=== PATIENT | male | born 1990 | race Caucasian/White ===

== ENCOUNTER 2017-07-23 21:01 | Emergency (ER) | payer SELFPAY ==
[2017-07-23 21:02] VITALS: BP 136/78; PULSE 71; RESP 16; TEMP 36.6; O2SAT 97; BMI 22.4
[2017-07-23] MEDS: Diphth,Pertuss(Acell),Tet Vac 0.5 ML Vial IM (21:22)
--- NOTE | 2017-07-23 21:27 | ED.DCSUM_ITS ---
- ER Visit Summary Date of Service: 07/23/17 Chief Complaint: Laceration History of Present Illness: The patient is a 27 M who cut her right AC with a hand box coverer approximately 11 hours prior to arrival. He notes bleeding is controlled. His tetanus is not up-to-date. Physical Examination: There is a 1.5 cm vertically orientated linear laceration over the medial aspect of the right AC fossa. There is no active bleeding. Clot is in place. No obvious signs of infection Emergency Department Course and Treatment: I discussed the risk of infection with the patient. Wound was locally anesthetized using 1% lidocaine. It was washed with Shur-Clens and explored. Old clot was removed fresh bleeding occurred. The wound was closed using a total of #3 4-0 simple interrupted Ethilon sutures. Tetanus is updated with Adacel. Stitches will need to be removed in 10-14 days return for worsening concerns or signs of infection. Impression: 1. 1.5 cm laceration of the right forearm with repair 2. Tetanus update This note was generated with [employer] dictation software. It may contain incorrect words, spelling, and punctuation that were not noted in review of the chart prior to signing ED Disposition - Plan for ED Patient: Disposition: Home or Assisted Living Chief Complaint: Laceration Instructions: ED Laceration Ext Sutr Stap Tape Referrals: Kristina Toscano MD [STAFF PHYSICIAN] - 10-14 Days suture removal
[2017-07-23 21:39] VITALS: BP 126/78; PULSE 81; RESP 16; O2SAT 100
== END 2017-07-23 21:40 | disposition home or self-care (01) ==
PROVIDERS: Emergency Provider Emergency Medicine
DX: S51.811A Laceration without foreign body of right forearm, initial encounter (principal); W26.8XXA Contact with other sharp object(s), not elsewhere classified, initial encounter; Y93.9 Activity, unspecified; Y92.9 Unspecified place or not applicable; Z23 Encounter for immunization
CPT/HCPCS: 12001; 90471; 90715; 99283

== ENCOUNTER 2017-11-21 13:09 | Observation (INO) | payer SELFPAY ==
[2017-11-21] VITALS (10 sets, daily range): BP systolic 113–132; BP diastolic 59–80; PULSE 74–119; RESP 14–18; TEMP 36.4–37.1; O2SAT 0–99; BMI 22.2
--- NOTE | 2017-11-21 13:34 | CT_ITS ---
STUDY: CT ABDOMEN AND PELVIS WITH CONTRAST REASON FOR EXAM: Male, 27 years old. Right testicular pain RADIATION DOSAGE (If Supplied By Facility): CTDIvol = ( 9.99 ) mGy, DLP = ( 623.09 ) mGycm TECHNIQUE: Transaxial images were obtained from the dome of the diaphragm to the symphysis pubis without oral contrast. 100CC ml of Isovue 300 contrast was administered. Sagittal and coronal images were reconstructed. Individualized dose optimization techniques were used for this CT. COMPARISON: None. FINDINGS: Left basilar peripheral nonspecific nodules up to 4 mm. The visualized portions of the heart are within normal limits. Normal liver. Normal gallbladder and extrahepatic biliary system. Normal spleen. Normal pancreas. Normal bilateral adrenal glands. 1.5 cm cyst in the right kidney. Normal left kidney. Normal visualized stomach. Normal small intestine. Normal colon. The appendix is thickened with inflammation and appendicolith. Acute appendicitis is suspected in the proper clinical settings. Normal abdominal aorta. Normal inferior vena cava. Normal retroperitoneum. Wall thickening of the urinary bladder with perivesical fluid/edema. Moderate pelvic fluid. Normal abdominal wall. Normal osseous structures. CT/Abdomen/Pelvis W IV Cont ONLY IMPRESSION: The appendix is thickened with inflammation and appendicolith. Acute appendicitis is suspected in the proper clinical settings. Wall thickening of the urinary bladder with perivesical fluid/edema. Moderate pelvic fluid. Electronically Signed: Clarence Caruso DO at 15:40 EDT Tel [phone], Service support ,
[2017-11-21] MEDS: 0.9% Normal Saline 1,000 ML 1000 ML IV (13:55)
[2017-11-21 14:00] LABS: Absolute Lymphocyte Count 1.38 X10^3/ul (0.83-4.51); Absolute Neutrophil Count 8.9 X10^3/uL (2.0-7.7); Basophil# 0.03 X10^3/uL; Basophil% 0.3 % (0-1); Eosinophil# 0.04 X10^3/uL; Eosinophils% 0.4 % (0-5); Hematocrit 44.7 % (40-54); Hemoglobin 15.2 g/dl (13.0-16.5); Lymphocyte # 1.38 X10^3/ul (4.0); Lymphocyte % 12.1 % (19-41); Mean Corpuscular Hgb 29.1 pg (27.0-32.0); Mean Corpuscular Volume 85.6 fL (80-94); Mean Platelet Vol. 10.8 fl (6.2-12.0); Monocyte# 1.03 X10^3/uL; Neutrophil # 8.89 X10^3/uL (2.7-7.7); Neutrophil % 77.9 % (47-70); POSITIVE COUNT NO; POSITIVE DIFFERENTIAL NO; POSITIVE MORPHOLOGY NO; Platelet Count 214 K/mm3 (150-450); RBC Distribution Width CV 13.6 % (11.6-14.6); RBC Distribution Width SD 42.5 fl (35.1-43.9); Red Blood Count 5.22 M/mm3 (4.6-6.2); White Blood Count 11.4 K/mm3 (4.4-11.0)
[2017-11-21 14:13] LABS: Mucous, Urine 0 SEEN /hpf (<or=2+); Red Blood Cells-Urine 0 SEEN /hpf (0-5); Squamous Epithelial Cells - UA 0 SEEN /hpf (0-5); White Blood Cells 0 SEEN /hpf (0-5)
[2017-11-21 14:14] LABS: AST(SGOT) 11 U/L (15-37); Alanine Aminotransfer ALT/SGPT 13 U/L (16-61); Albumin, Serum 3.8 g/dL (3.2-5.0); Alkaline Phosphatase 70 U/L (45-117); Anion Gap 5 (5-15); BUN 11 mg/dL (7-18); BUN/Creat Ratio 11.9 RATIO (10-20); Calcium,Total 8.6 mg/dL (8.5-10.1); Chloride 104 mmol/L (98-107); Creatinine, Serum 0.93 mg/dL (0.70-1.30); EST Glomerular Filtration Rate 105 mL/min (>60); Est Glom Filt Rate - Afr Amer 127 mL/min (>60); Estimated Creatinine Clearance 127.78 ml/min; Glucose 97 mg/dL (74-106); Lipase 50 U/L (73-393); Protein, Total 7.8 g/dL (6.4-8.2); Sodium Level 137 mmol/L (136-145)
[2017-11-21 14:17] LABS: Color, Urine Yellow (Yellow); Glucose, Dipstick Normal (Normal); Ketone-Dipstick Negative (Negative); Leukocyte Esterase-Dipstick Negative /ul (Negative); Nitrite-Dipstick Negative (Negative); Occult Blood-Urine Negative /ul (Negative); Protein-Dipstick Negative (Negative); Urine Bilirubin Dipstick Negative (Negative); Urine Clarity Clear (Clear); Urine Urobilinogen Normal (Normal)
[2017-11-21 14:24] LABS: Amorphous Sediment R; Bacteria RARE /hpf (None Seen)
--- NOTE | 2017-11-21 15:35 | APP_PTH ---
PATIENT: GRISELDA TRONCOSO LOC: MS3 U#:[id number] AGE/SX: 27/M ROOM: [facility] RE11/21/[address]: Dr. Sahra Marshall MD : 1990 BED: 1 DIS: 11/23/2017 SPEC #: [id number] RECD: 11/22/17 09:34 STATUS: ERIBERTO REJase #: [id number] KAITLIN: 11/21/17 15:[address]: Sahra Marshall DEPT: SURGICAL PATHOLOGY RECD BY: Gama Dias ENTERED: 11/22/17 10:22 SP TYPE: APPENDIX OTHR DR: Dr. Reji Gaona MD No Primary Care Phys Tissues: Appendix, NOS Procedures: Surgery Specimen Level III HEADER OPERATION: Laparoscopic appendectomy PRE-OP DIAGNOSIS: Acute appendicitis TISSUE SUBMITTED: Appendix MICROSCOPIC DIAGNOSIS Appendix: Acute appendicitis and periappendicitis. SJ:siva 11/23/17 MICROSCOPIC DESCRIPTION Slides are reviewed. GROSS DESCRIPTION Received is one container labeled with the patient's name and designated appendix. The specimen consists of a C-shaped appendix measuring 8 cm in length and up to 0.8 cm in average diameter. The attached periappendiceal adipose tissue measures up to 2.5 cm in width. The appendix is disrupted 2 cm away from the tip and may represent site of perforation. The lumen does not contain a fecalith. Field Radio Operator sections are submitted in one cassette. / SJ:siva 11/22/17 TC:2 [facility]: [id number]
--- NOTE | 2017-11-21 15:50 | NURSING ---
DR OLSON PAGEEwelina
--- NOTE | 2017-11-21 15:53 | ED.VISSUMM ---
- ER Visit Summary Date of Service: 11/21/17 Chief Complaint: Right groin pain History of Present Illness: The patient is a 27 M and abdominal pain for 5 days. The pain started in his right lower abdomen and has migrated to his right inguinal region and right testicle today. Associated with a headache and not feeling well. No other GI symptoms. No symptoms. No history of this in the past. No surgical history. Physical Examination: Afebrile and vital signs unremarkable. Abdomen is tender in the right lower quadrant. exam was nontender with no masses and a normal testicular lie. Test Results: White count 11.4. CMP, lipase, and urinalysis unremarkable. CT showed appendix thickening with an appendicolith. He also has bladder wall thickening. Emergency Department Course and Treatment: Patient initially declined pain medication. On reevaluation, he had increasing pain and was treated with morphine. I suspect that with his history and demographics, this is likely appendicitis. There is nothing to suggest pathology. Patient was treated with Zosyn and Dr. Marshall will evaluate. Treatment Plan: As above Disposition: Admission Impression: 1. Acute appendicitis This note was generated with [employer] dictation software. It may contain incorrect words, spelling, and punctuation that were not noted in review of the chart prior to signing ED Disposition - Plan for ED Patient: Chief Complaint: Male Pain/Injury Referrals: Care Physician,No Primary [Primary Care Provider] -
--- NOTE | 2017-11-21 15:57 | ED.DCSUM_ITS ---
- ER Visit Summary Date of Service: 11/21/17 Chief Complaint: Right groin pain History of Present Illness: The patient is a 27 M and abdominal pain for 5 days. The pain started in his right lower abdomen and has migrated to his right inguinal region and right testicle today. Associated with a headache and not feeling well. No other GI symptoms. No symptoms. No history of this in the past. No surgical history. Physical Examination: Afebrile and vital signs unremarkable. Abdomen is tender in the right lower quadrant. exam was nontender with no masses and a normal testicular lie. Test Results: White count 11.4. CMP, lipase, and urinalysis unremarkable. CT showed appendix thickening with an appendicolith. He also has bladder wall thickening. Emergency Department Course and Treatment: Patient initially declined pain medication. On reevaluation, he had increasing pain and was treated with morphine. I suspect that with his history and demographics, this is likely appendicitis. There is nothing to suggest pathology. Patient was treated with Zosyn and Dr. Marshall will evaluate. Treatment Plan: As above Disposition: Admission Impression: 1. Acute appendicitis This note was generated with [employer] dictation software. It may contain incorrect words, spelling, and punctuation that were not noted in review of the chart p rior to signing ED Disposition - Plan for ED Patient: Chief Complaint: Male Pain/Injury Referrals: Care Physician,No Primary [Primary Care Provider] -
[2017-11-21] MEDS: Morphine 4 MG/ML Syringe IV (16:12)
--- NOTE | 2017-11-21 16:40 | PCM.HP.STD ---
History of Present Illness Date of Admission: 11/21/17 Chief Complaint: Acute appendicitis The patient is a 27 year old M resents to the ER due to right lower quadrant pain started yesterday about 4 PM. Patient rates the pain a 5/10, positive nausea, no vomiting, felt warm today but no recorded fever. Patient states he did have a bowel moment today which was normal. Patient CT abdomen pelvis which was consistent with thickened appendix with appendicolith, his white blood cell count was 11.4. Patient did state for about 5 days last week he did not feel well however on Wednesday he did start feeling much better and then this pain began on Wednesday. Past Medical History Allergies No Known Allergies Allergy (Verified 11/21/17 13:29) Home Medications: Ambulatory Orders Medication Instructions Recorded NK 07/23/17 Surgical History: no surgical history Psychiatric History: No pertinent psych hx Lives: Spouse/ Significant Other Smoking Status: Never smoker - *Family History Maternal History Items: No pertinent history Review of Systems Constitutional: Reports: Anorexia, Fever Eyes: Denies: Blurred vision HEENT: Denies: Difficulty Swallowing Cardiovascular: Denies: Chest Pain Gastrointestinal: Reports: Abdominal Pain VTE Information - Inpt Only VTE Present on Admission: Yes VTE Mechan Device Prophylaxis: SCD's VTE Pharm Prophylaxis ordered?: No Reason prophylaxis not ordered:: Treatment Not Indicated - Physical Exam General: Alert, Oriented x3, Cooperative, No apparent distress HEENT: Atraumatic Lungs: Normal air movement Cardiovascular: Regular rate, Regular Rhythm Abdomen: Soft, Non-Distended, Tender - Right lower quadrant greater than left lower quadrant, no guarding rebound Vital Signs Temp Pulse Resp BP Pulse Ox 98.7 F 87 16 119/80 99 11/21/17 16:13 11/21/17 16:13 11/21/17 16:13 11/21/17 16:13 11/21/17 15:18 Oxygen Delivery Method Room Air Weight: 164 lb 0.383 oz Body Mass Index (BMI) 22.2 Laboratory Tests Past 24 Hrs 11/21/17 11/21/17 11/21/17 13:35 13:35 14:07 WBC 11.4 H RBC 5.22 Hgb 15.2 Hct 44.7 MCV 85.6 MCH 29.1 MCHC 34.0 RDW 13.6 RDW Differential 42.5 Plt Count 214 MPV 10.8 Immature Gran % (Auto) 0.300 Neut % (Auto) 77.9 H Lymph % (Auto) 12.1 L [place] % (Auto) 9.0 Eos % (Auto) 0.4 Baso % (Auto) 0.3 Absolute Neuts (auto) 8.9 H Absolute Lymphs (auto) 1.38 Total Counted Not Reportable Sodium 137 Potassium 4.0 Chloride 104 Carbon Dioxide 28.0 Anion Gap 5 BUN 11 Creatinine 0.93 Estim Creat Clear Calc 127.78 Est GFR (MDRD) Af Amer 127 Est GFR (MDRD) Non-Af 105 BUN/Creatinine Ratio 11.9 Glucose 97 Calcium 8.6 Total Bilirubin 0.60 AST 11 L ALT 13 L Alkaline Phosphatase 70 Total Protein 7.8 Albumin 3.8 Globulin 4.0 Albumin/Globulin Ratio 1.0 Lipase 50 L Urine Color Yellow Urine Clarity Clear Urine pH 7.0 Ur Specific [place] 1.010 Urine Protein Negative Urine Glucose (UA) Normal Urine Ketones Negative Urine Occult Blood Negative Urine Nitrite Negative Urine Bilirubin Negative Urine Urobilinogen Normal Ur Leukocyte Esterase Negative Urine RBC 0 SEEN Urine WBC 0 SEEN Ur Squamous Epith Cells 0 SEEN Amorphous Sediment R Urine Bacteria RARE Urine Mucus 0 SEEN Assessment/Plan 27-year-old male with acute appendicitis 1. Discussed procedure laparoscopic appendectomy, possible open, possible bowel resection along with the risk but not limited to bleeding, infection/abscess, injury to another organ (small bowel, colon, etc.), adhesion, hernia at incision sites, and anesthesia. Patient and his had no further questions. Sahra Marshall M.D. Pager: [phone] [facility] [address] [place] [address], [address] [place] [address] Office: [phone]
--- NOTE | 2017-11-21 16:44 | HP.PCM_ITS ---
History of Present Illness Date of Admission: 11/21/17 Chief Complaint: Acute appendicitis The patient is a 27 year old M resents to the ER due to right lower quadrant pain started yesterday about 4 PM. Patient rates the pain a 5/10, positive nausea, no vomiting, felt warm today but no recorded fever. Patient states he did have a bowel moment today which was normal. Patient CT abdomen pelvis which was consistent with thickened appendix with appendicolith, his white blood cell count was 11.4. Patient did state for about 5 days last week he did not feel well however on Wednesday he did start feeling much better and then this pain began on Wednesday. Past Medical History Allergies No Known Allergies Allergy (Verified 11/21/17 13:29) Home Medications: Ambulatory Orders Medication Instructions Recorded NK 07/23/17 Surgical History: no surgical history Psychiatric History: No pertinent psych hx Lives: Spouse/ Significant Other Smoking Status: Never smoker - *Family History Maternal History Items: No pertinent history Review of Systems Constitutional: Reports: Anorexia, Fever Eyes: Denies: Blurred vision HEENT: Denies: Difficulty Swallowing Cardiovascular: Denies: Chest Pain Gastrointestinal: Reports: Abdominal Pain VTE Information - Inpt Only VTE Present on Admission: Yes VTE Mechan Device Prophylaxis: SCD's VTE Pharm Prophylaxis ordered?: No Reason prophylaxis not ordered:: Treatment Not Indicated - Physical Exam General: Alert, Oriented x3, Cooperative, No apparent distress HEENT: Atraumatic Lungs: Normal air movement Cardiovascular: Regular rate, Regular Rhythm Abdomen: Soft, Non-Distended, Tender - Right lower quadrant greater than left l ower quadrant, no guarding rebound Vital Signs Temp Pulse Resp BP Pulse Ox 98.7 F 87 16 119/80 99 11/21/17 16:13 11/21/17 16:13 11/21/17 16:13 11/21/17 16:13 11/21/17 15:18 Oxygen Delivery Method Room Air Weight: 164 lb 0.383 oz Body Mass Index (BMI) 22.2 Laboratory Tests Past 24 Hrs 11/21/17 11/21/17 11/21/17 13:35 13:35 14:07 WBC 11.4 H RBC 5.22 Hgb 15.2 Hct 44.7 MCV 85.6 MCH 29.1 MCHC 34.0 RDW 13.6 RDW Differential 42.5 Plt Count 214 MPV 10.8 Immature Gran % (Auto) 0.300 Neut % (Auto) 77.9 H Lymph % (Auto) 12.1 L [place] % (Auto) 9.0 Eos % (Auto) 0.4 Baso % (Auto) 0.3 Absolute Neuts (auto) 8.9 H Absolute Lymphs (auto) 1.38 Total Counted Not Reportable Sodium 137 Potassium 4.0 Chloride 104 Carbon Dioxide 28.0 Anion Gap 5 BUN 11 Creatinine 0.93 Estim Creat Clear Calc 127.78 Est GFR (MDRD) Af Amer 127 Est GFR (MDRD) Non-Af 105 BUN/Creatinine Ratio 11.9 Glucose 97 Calcium 8.6 Total Bilirubin 0.60 AST 11 L ALT 13 L Alkaline Phosphatase 70 Total Protein 7.8 Albumin 3.8 Globulin 4.0 Albumin/Globulin Ratio 1.0 Lipase 50 L Urine Color Yellow Urine Clarity Clear Urine pH 7.0 Ur Specific [place] 1.010 Urine Protein Negative Urine Glucose (UA) Normal Urine Ketones Negative Urine Occult Blood Negative Urine Nitrite Negative Urine Bilirubin Negative Urine Urobilinogen Normal Ur Leukocyte Esterase Negative Urine RBC 0 SEEN Urine WBC 0 SEEN Ur Squamous Epith Cells 0 SEEN Amorphous Sediment R Urine Bacteria RARE Urine Mucus 0 SEEN Assessment/Plan 27-year-old male with acute appendicitis 1. Discussed procedure laparoscopic appendectomy, possible open, possible bowel resection along with the risk but not limited to bleeding, infection/abscess, injury to another organ (small bowel, colon, etc.), adhesion, hernia at incision sites, and anesthesia. Patient and his had no further questions. Sahra Marshall M.D. Pager: [phone] [facility] [address] [place] [address], [address] [place] [address] Office: [phone]
[2017-11-21] MEDS: Bupiv/Epi 0.5% Mpf 30 ML Vial (18:27)
--- NOTE | 2017-11-21 18:27 | PCM.OPRPT ---
Report of Operation Date of Procedure: 11/21/17 Pre-Operative Diagnosis: Acute appendicitis Post-Operative Diagnosis: Same Surgery/Procedure Performed:: Laparoscopic appendectomy medical numerical control operator: Bobo Summers Type of Anesthesia:: General/Supplemental Anesthesiologist: Joe Escobar Specimen's removed: Appendix Estimated Blood Loss (mL): <10 cc Fluids Replaced: 1.5 L Description of Procedure: Indications: 27-year-old male presented to the ER with new right lower quadrant pain this morning. On workup he was found to have acute appendicitis on CT and a leukocytosis of 11.4. Patient was started on antibiotics in the ER for acute appendicitis-Zosyn 4.5 g IV x1 Description of the procedure: The patient was placed on operating table in supine position. General anesthesia was induced. A timeout was completed verifying correct patient, procedure, sacrum position and special, prior to beginning procedure. A Abbasi catheter and orogastric tube placed. Abdomen was prepped and draped in usual sterile fashion. Incision was made in the natural skin line above the umbilicus with a 15 blade scalpel. The fascia was elevated and incised. Entry into the peritoneum was confirmed visually and no bowel was noted in the vicinity of the incision. The Rowland trocar was placed under direct vision. Abdomen insufflated with a pressure of 12-15 mmHg. Patient tolerated insertion well. The scope was inserted and the abdomen inspected. No injuries from initial trocar placement were noted. Minimal amount of fluid was seen in the right lower quadrant. An direct visualization 2 -5 mm trocars were placed one above the symptoms his pubis and below the hairline and one in the left lower quadrant lateral to the rectus muscle. Care is taken to avoid injury to the bladder and inferior epigastric vessels. The table was placed in Trendelenburg position with the right side elevated. The appendix was grasped with atraumatic grasper and elevated. It was noted to be inflamed and adherent to the top of the bladder and able to be removed with just gentle traction. A window was developed in the mesoappendix at the point between the base of the appendix and the cecum. An endoscopic 45 mm linear cutting stapler blue load was then used to divide and staple the base of the appendix. An Enseal was used to divide the mesoappendix. The appendix was withdrawn into the Rowland trocar after being placed endoscopically retrieval bag. Appendix was sent to pathology. The appendiceal stump was then irrigated and hemostasis was assured. Fluid was suctioned no other pathology was identified. Secondary trochars were removed under direct visualization. No bleeding was noted trocar sites. The laparoscope withdrawn and the umbilical trocar removed. The abdomen was allowed to collapse. Local anesthesia of 20 mL of 0.5% Marcaine was used at the incision sites. The umbilical trocar site was closed with the [id number] 0 Vicryl suture. The skin was closed up to clear sutures of 4-0 Monocryl and Steri-Strips. The patient was extubated. The patient tolerated the procedure well and was taken to the postanesthesia care unit in satisfactory condition. - Complications none
[2017-11-21] MEDS: Lactated Ringers 1,000 ML 125 ML IV (18:52)
[2017-11-21] MEDS: Ondansetron 4 MG/2 ML Vial IV (20:33)
[2017-11-22] MEDS: HYDROcodone Bitartrate/Apap 5/325 Tablet PO ×3 (01:37→11:44)
[2017-11-22] MEDS: Piperacil/Tazobactam 3.375 GM/50 ML ML IV ×3 (01:38→22:01)
[2017-11-22 01:40] VITALS: BP 117/72; PULSE 90; RESP 16; TEMP 36.7; O2SAT 99
[2017-11-22] MEDS: Lactated Ringers 1,000 ML 125 ML IV ×3 (03:53→20:21)
[2017-11-22 07:21] VITALS: BP 110/73; PULSE 80; RESP 18; TEMP 36.9; O2SAT 99
--- NOTE | 2017-11-22 07:22 | PCM.PN.SRG ---
Subjective: Patient still states his right lower quadrants little sore but much improved, denies any flatus, tolerated some clears, pain controlled - Physical Exam General: Alert, Oriented x3, Cooperative, No apparent distress HEENT: Atraumatic Lungs: Normal air movement Cardiovascular: Regular rate Abdomen: Soft, Distended - Mild, Tender - Tender near incision right lower quadrant, no guarding or rebound Extremities: No clubbing, No cyanosis, No edema Vital Signs Temp Pulse Resp BP Pulse Ox 98.1 F 90 16 117/72 99 11/22/17 01:40 11/22/17 01:40 11/22/17 01:40 11/22/17 01:40 11/22/17 01:40 Oxygen Delivery Method Room Air Weight: 164 lb 0.383 oz Body Mass Index (BMI) 22.2 Intake and Output for Last 24 Hours 11/20/17 11/21/17 11/22/17 23:59 23:59 23:59 Intake Total 1999 1295 / 1295 Output Total 1000 / 1000 Balance 1999 295 / 295 Laboratory Tests Past 24 Hrs 11/21/17 11/21/17 11/21/17 13:35 13:35 14:07 WBC 11.4 H RBC 5.22 Hgb 15.2 Hct 44.7 MCV 85.6 MCH 29.1 MCHC 34.0 RDW 13.6 RDW Differential 42.5 Plt Count 214 MPV 10.8 Immature Gran % (Auto) 0.300 Neut % (Auto) 77.9 H Lymph % (Auto) 12.1 L [place] % (Auto) 9.0 Eos % (Auto) 0.4 Baso % (Auto) 0.3 Absolute Neuts (auto) 8.9 H Absolute Lymphs (auto) 1.38 Total Counted Not Reportable Sodium 137 Potassium 4.0 Chloride 104 Carbon Dioxide 28.0 Anion Gap 5 BUN 11 Creatinine 0.93 Estim Creat Clear Calc 127.78 Est GFR (MDRD) Af Amer 127 Est GFR (MDRD) Non-Af 105 BUN/Creatinine Ratio 11.9 Glucose 97 Calcium 8.6 Total Bilirubin 0.60 AST 11 L ALT 13 L Alkaline Phosphatase 70 Total Protein 7.8 Albumin 3.8 Globulin 4.0 Albumin/Globulin Ratio 1.0 Lipase 50 L Urine Color Yellow Urine Clarity Clear Urine pH 7.0 Ur Specific [place] 1.010 Urine Protein Negative Urine Glucose (UA) Normal Urine Ketones Negative Urine Occult Blood Negative Urine Nitrite Negative Urine Bilirubin Negative Urine Urobilinogen Normal Ur Leukocyte Esterase Negative Urine RBC 0 SEEN Urine WBC 0 SEEN Ur Squamous Epith Cells 0 SEEN Amorphous Sediment R Urine Bacteria RARE Urine Mucus 0 SEEN Medical Necessity - Tobacco Use Smoking Status: Never smoker Assessment/Plan 27-year-old male with acute appendicitis 1. The patient tolerates a clear diet will advance to regular. Patient is able to ambulate, pain controlled and vital signs stable will be able to DC home later today. Sahra Marshall M.D. Pager: [phone] [facility] [address] [place] [address], [address] [place] [address] Office: [phone]
--- NOTE | 2017-11-22 07:49 | DCINST_ITS ---
Discharge Diet: Light diet - advance as tolerated Discharge Activity: May not drive while taking narcotic pain medications. May shower in (days): 1 Lifting Restrictions: no lifting >20 lb x 4 weeks Call your doctor if your incision/area has: Continuous Slow Oozing, Sudden Increased Bleeding, Increased Pain/ Swelling, Increased Redness, Foul Smelling Discharge, Swelling at the incision site Call your doctor if you observe: Fever of 101 or Higher Remove Dressing in (days):: 1 Additional Instructions: ok to take ibu/advil 400-600 mg PO q6h PRN between doses of [place]. avoid tylenol as it is already in [place]. take all pain meds with food. [place] can cause constipation, take daily stool softener. If no BM in 1-2 days take several doses of miralax throughout the day, if no results that day-following day take 1/2 bottle magnesium citrate. if no results in 6 hrs, take the other 1/2 of the bottle. Medications to take at Discharge Hydrocodone Bitart/Apap 5-325 [[place] 5MG-325MG] 1 - 2 tablet PO Q6H PRN PRN 4 Days #20 tablet 11/22/17 Allergies/Adverse Reactions: Allergies No Known Allergies Allergy (Verified 11/21/17 13:29) The following prescriptions were given: Hydrocodone Bitart/Apap 5-325 [[place] 5MG-325MG] 1 - 2 tablet PO Q6H PRN PRN 4 Days #20 tablet PRN Reason: Pain Primary Care Physician: Care Physician,No Primary [Primary Care Provider] - Test Results: Test results from this visit will be discussed in further detail at your follow- up appointment, if applicable. Please Follow Up With: Sahra Marshall MD - after 5pm/weekends call [phone] When: call office [phone] for f/u appt in 2 weeks Proposed Discharge Date: 11/22/17
[2017-11-22] MEDS: Docusate Sodium 100 MG Capsule PO (11:44)
[2017-11-22 13:16] VITALS: BP 112/72; PULSE 71; RESP 18; TEMP 36.8; O2SAT 98
--- NOTE | 2017-11-22 14:31 | CASEMGMT ---
Social Work Note Pt is listed as self-pay. SW met with pt. 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 Plan: Discharge home Colleen Lentz MSW, [employer]
--- NOTE | 2017-11-22 15:49 | NURSING ---
DR OLSON CALLED IN FOR PT UPDATE. MADE AWARE OF NO FLATUS, EMESIS, DECREASE IN BS. NEW ORDERS RECEIVED.
[2017-11-22 18:09] VITALS: BP 123/71; PULSE 69; RESP 18; TEMP 36.8; O2SAT 99
[2017-11-22] MEDS: Ketorolac 15 MG/ML Vial IV (18:13)
[2017-11-22] MEDS: 0.9% NaCl Peripheral Flush Adult/Peds IV (18:13)
[2017-11-22 20:23] VITALS: BP 109/60; PULSE 59; RESP 16; TEMP 36.9; O2SAT 99
[2017-11-23 02:20] VITALS: BP 116/66; PULSE 69; RESP 16; TEMP 36.8; O2SAT 97
--- NOTE | 2017-11-23 03:00 | NURSING ---
Verbal report from ACOSTA Urbano; assumed care for this patient.
[2017-11-23 06:13] LABS: Absolute Lymphocyte Count 1.66 X10^3/ul (0.83-4.51); Absolute Neutrophil Count 5.2 X10^3/uL (2.0-7.7); Basophil# 0.02 X10^3/uL; Basophil% 0.3 % (0-1); Eosinophil# 0.11 X10^3/uL; Eosinophils% 1.4 % (0-5); Hematocrit 40.8 % (40-54); Hemoglobin 13.6 g/dl (13.0-16.5); Lymphocyte # 1.66 X10^3/ul (4.0); Lymphocyte % 21.4 % (19-41); Mean Corp Hgb Conc 33.3 g/gl (32-36); Mean Corpuscular Hgb 29.2 pg (27.0-32.0); Mean Corpuscular Volume 87.7 fL (80-94); Mean Platelet Vol. 11.1 fl (6.2-12.0); Monocyte# 0.79 X10^3/uL; Monocyte% 10.2 % (0-10); Neutrophil # 5.15 X10^3/uL (2.7-7.7); Neutrophil % 66.4 % (47-70); Platelet Count 208 K/mm3 (150-450); RBC Distribution Width CV 13.8 % (11.6-14.6); RBC Distribution Width SD 44.1 fl (35.1-43.9); Red Blood Count 4.65 M/mm3 (4.6-6.2); White Blood Count 7.8 K/mm3 (4.4-11.0)
[2017-11-23 06:14] LABS: POSITIVE COUNT NO; POSITIVE DIFFERENTIAL NO; POSITIVE MORPHOLOGY NO
[2017-11-23] MEDS: Piperacil/Tazobactam 3.375 GM/50 ML ML IV (06:27)
[2017-11-23 06:28] LABS: Anion Gap 9 (5-15); BUN 10 mg/dL (7-18); BUN/Creat Ratio 11.3 RATIO (10-20); Calcium,Total 8.6 mg/dL (8.5-10.1); Chloride 106 mmol/L (98-107); Creatinine, Serum 0.88 mg/dL (0.70-1.30); EST Glomerular Filtration Rate 111 mL/min (>60); Est Glom Filt Rate - Afr Amer 135 mL/min (>60); Estimated Creatinine Clearance 135.04 ml/min; Glucose 69 mg/dL (74-106); Potassium 3.8 mmol/L (3.5-5.1); Sodium Level 142 mmol/L (136-145)
[2017-11-23] MEDS: Ketorolac 15 MG/ML Vial IV (06:47)
[2017-11-23] MEDS: 0.9% NaCl Peripheral Flush Adult/Peds IV (06:47)
--- NOTE | 2017-11-23 07:08 | RAD_ITS ---
STUDY: X-RAY - ABDOMEN/PELVIS REASON FOR EXAM: Male, 27 years old. 2 day history of abdominal distention. Recent appendectomy. TECHNIQUE: Single AP view of the abdomen / pelvis. COMPARISON: None. FINDINGS: There is a moderate amount of colonic fecal material. The visualized liver, spleen and kidneys are grossly normal in size and morphology. Normal soft tissue structures. Normal visualized osseous structures. RAD/Abdomen Single View (Portable) IMPRESSION: Moderate amount of fecal material is seen in the colon. Electronically Signed: Siddhartha Monge MD at 14:12 EDT Tel [phone], Service support ,
--- NOTE | 2017-11-23 08:08 | PCM.PN.SRG ---
Subjective: Patient had nausea and vomiting was clears yesterday as he had no flatus. However this morning he is passing flatus and denies nausea and vomiting - Physical Exam General: Alert, Oriented x3, Cooperative, No apparent distress Lungs: Normal air movement Cardiovascular: Regular rate Abdomen: Soft, Distended - Mild, Tender - At incision sites dressed clean dry and intact, no peritoneal signs Extremities: No clubbing, No cyanosis, No edema Psych/Mental Status: Normal Affect Vital Signs Temp Pulse Resp BP Pulse Ox 98.2 F 69 16 116/66 97 11/23/17 02:20 11/23/17 02:20 11/23/17 02:20 11/23/17 02:20 11/23/17 02:20 Oxygen Delivery Method Room Air Weight: 164 lb 0.383 oz Body Mass Index (BMI) 22.2 Intake and Output for Last 24 Hours 11/21/17 11/22/17 11/23/17 23:59 23:59 23:59 Intake Total 1999 3789 / 3789 1267 / 1267 Output Total 4625 / 4625 Balance 1999 -836 / -836 1267 / 1267 Laboratory Tests Past 24 Hrs 11/23/17 11/23/17 05:30 05:30 WBC 7.8 RBC 4.65 Hgb 13.6 Hct 40.8 MCV 87.7 MCH 29.2 MCHC 33.3 RDW 13.8 RDW Differential 44.1 H Plt Count 208 MPV 11.1 Immature Gran % (Auto) 0.300 Neut % (Auto) 66.4 Lymph % (Auto) 21.4 [place] % (Auto) 10.2 H Eos % (Auto) 1.4 Baso % (Auto) 0.3 Absolute Neuts (auto) 5.2 Absolute Lymphs (auto) 1.66 Total Counted Not Reportable Sodium 142 Potassium 3.8 Chloride 106 Carbon Dioxide 27.0 Anion Gap 9 BUN 10 Creatinine 0.88 Estim Creat Clear Calc 135.04 Est GFR (MDRD) Af Amer 135 Est GFR (MDRD) Non-Af 111 BUN/Creatinine Ratio 11.3 Glucose 69 L Calcium 8.6 Medical Necessity - Tobacco Use Smoking Status: Never smoker Assessment/Plan 27-year-old male with acute appendicitis 1. He did have nausea and vomiting yesterday with clears. However he is passing gas this morning will start with clears and advance to regular if he tolerates the clears. If he is able to tablet regular no nausea no vomiting pain is controlled and ambulating well okay to [place] later today. Sahra Marshall M.D. Pager: [phone] [facility] [address] [place] [address], [address] [place] [address] Office: [phone]
[2017-11-23] MEDS: Docusate Sodium 100 MG Capsule PO (08:56)
[2017-11-23 09:00] VITALS: BP 114/64; PULSE 66; RESP 16; TEMP 36.9; O2SAT 100
== END 2017-11-23 13:17 | disposition home or self-care (01) ==
LOC: ED 16:54 → SDC 17:26 → AC 17:28 → MS3 18:59
PROVIDERS: Admitting Provider Surgery; Emergency Provider Emergency Medicine; Referring Provider Emergency Medicine; Visit Provider Surgery
PROC: 0DTJ4ZZ Resection of Appendix, Percutaneous Endoscopic Approach (ICD-10-PCS; CPT 44970; principal; 2017-11-21 15:15)
DX: K35.80 Unspecified acute appendicitis (principal); Z23 Encounter for immunization
CPT/HCPCS: 00840; 44970; 36415; 74018; 74177; 80048; 80053; 81001; 83690; 85025; 88304; 96361; 96365; 96366; 96375; 96376; 99218; 99282; J7030; J7120; Q9967; 90686; A4216; C1760; G0378; J2405